=== PATIENT | female | born 1975 | race Caucasian/White ===

== ENCOUNTER 2016-09-09 10:11 | Inpatient (IN) | payer OTHER ==
[2016-09-09] VITALS (21 sets, daily range): BP systolic 112–143; BP diastolic 63–93; PULSE 63–92; RESP 13–29; Ht 162.6 cm; Wt 68.8 kg
[~2016-09-09] VITALS: Ht 162.6 cm; Wt 68.8 kg
[2016-09-09] MEDS ORDERED: CEFTRIAXONE 1 GM/NS 50 ML IVPB ONE (12:00)
--- NOTE | 2016-09-09 12:09 | HPN ---
Date/Time of Note Date/Time of Note DATE: 09/09/16 TIME: 12:09 Interval H&P Admission Note Pt. seen H&P reviewed: No system changes HAN SANABRIA MD Sep 09, 2016 12:09
[2016-09-09] MEDS ORDERED: IOHEXOL 300MG/ML 30 ML BTL INJ ONE (12:30)
[2016-09-09] MEDS ORDERED: IOHEXOL 300MG/ML 30 ML BTL ONE ×2 (12:32→14:47)
[2016-09-09] MEDS ORDERED: PROPOFOL 20 ML ONE (12:44)
[2016-09-09] MEDS ORDERED: MIDAZOLAM 1 MG/ML 2 ML INJ ONE (12:44)
[2016-09-09] MEDS ORDERED: SUCCINYLCHOLINE CHLORIDE 100 MG/5 ML SYG IV ONE (12:44)
[2016-09-09] MEDS ORDERED: LIDOCAINE 2% (SDV) 5 ML INJ ONE (12:44)
[2016-09-09] MEDS ORDERED: FENTAnyl 50 MCG/ML VIAL ONE (12:51)
[2016-09-09] MEDS ORDERED: ROCURONIUM 50 MG INJ ONE (13:02)
[2016-09-09] MEDS ORDERED: ONDANSETRON 4 MG INJ ONE (13:18)
[2016-09-09] MEDS ORDERED: METOCLOPRAMIDE 10 MG INJ ONE (13:18)
[2016-09-09] MEDS ORDERED: DEXAMETHASONE 4 MG/ML 1 ML INJ ONE (13:19)
[2016-09-09] MEDS ORDERED: FAMOTIDINE 20 MG INJ ONE (13:19)
--- NOTE | 2016-09-09 13:33 | RADRPT ---
PROCEDURE: Intraoperative imaging of the abdomen and pelvis with fluoroscopy. CLINICAL INDICATION: Right flank pain. Right renal calculus. Intraoperative. TECHNIQUE: 10 images of the abdomen and pelvis were obtained in the operating room with an image i ntensifier. No radiologist was in attendance. 0.7 minutes of fluoroscopy time was used. COMPARISON: No prior study is available for comparison. FINDINGS: Images demonstrate placement of a balloon-tip catheter in the proximal right ureter and subsequent c ontrast injection. There is a large calculus in the lower pole franki of the right kidney. There is no hydronephrosis. IMPRESSION: 1. Satisfactory intraoperative imaging of the abdomen and pelvis. RPTAT: QQ .Allan Butterfield MD, MD Date Time Electronically viewed and signed by .Allan Butterfield MD, on 09/09/2016 13:33 .R/
[2016-09-09] MEDS ORDERED: HYDROmorphONE 2 MG/ML SYG ONE (13:45)
[2016-09-09] MEDS ORDERED: MEPERIDINE 25 MG INJ IV PRN (16:30)
[2016-09-09] MEDS ORDERED: FENTAnyl 50 MCG/ML VIAL IV PRN ×3 (16:30)
[2016-09-09] MEDS ORDERED: HYDROmorphONE (0.2 MG/ML) 10ML SYG IV PRN ×3 (16:30)
[2016-09-09] MEDS ORDERED: PROCHLORPERAZINE 10 MG INJ IV PRN (16:30)
[2016-09-09] MEDS ORDERED: DIPHENHYDRAMINE 50 MG INJ IV PRN (16:30)
[2016-09-09] MEDS ORDERED: ONDANSETRON 4 MG INJ IV PRN ×2 (16:30→21:30)
[2016-09-09] MEDS ORDERED: HYDROmorphONE 0.2 MG/ML PCA IV SCH (17:00)
[2016-09-09] MEDS ORDERED: HYDROCODONE/APAP (5/325) TAB PO PRN (17:00)
--- NOTE | 2016-09-09 17:12 | RADRPT ---
PROCEDURE: Intraoperative right renal percutaneous access for placement of 30-Zimbabwean sheath, right nephrostogram, and right nephrostomy tube placement. CLINICAL INDICATION: Right kidney stones. Right flank pain. TECHNIQUE: Prior to the procedure, informed consent was obtained from the patient. Risks including bleeding an d infection were explained to the patient. The patient understood and was willing to proceed. A pr ocedural pause was performed. The patient's name, date of , and procedure to be performed were verified. Prior to the procedure, Dr. Echavarria inserted a retrograde right ureteral catheter with a balloon tip just below the right ureteropelvic junction. The balloon was inflated and contrast was infused int o the catheter in a retrograde fashion such that the right renal pelvis and collecting system were d istended. Using fluoroscopic guidance, a 6-Zimbabwean Yueh needle was advanced into the right upper pole calyx. T he tip was confirmed to be in position with fluoroscopic guidance. The inner cannula was removed le aving the plastic sheath in position. A guidewire was advanced through the plastic sheath into the right renal pelvis. Following this, the Yueh catheter was removed leaving the guidewire in position . A 7-Zimbabwean sheath was then advanced over the guidewire. The dilator was removed and an Amplatz gu idewire was then advanced through the sheath such that two guidewires were present within the right renal pelvis. The sheath was then removed and the safety guidewire was secured to the patient's ski n. Using a Kumpe catheter and various guide wires, an attempt was made to advance the guide wire in to the right ureter. However, due to marked tortuosity of the proximal right ureter, this could not be accomplished. Therefore, the 2 guidewires were left in the renal pelvis and the dilation was performed. A 10 mm renal dilation balloon was then advanced over the Amplatz guidewire such that th e tip was present in the renal pelvis. The balloon was inflated to 15 atmospheres under fluoroscopi c guidance. The 30 [place]an sheath was then advanced over the balloon into the renal pelvis. The bal loon dilator was then deflated and removed leaving the sheath in place within the renal pelvis. Dr. Echavarria then inserted the rigid nephroscope, which then confirmed the position of the sheath within the renal pelvis. The right ureter was then visualize directly with the nephroscope and using fluor oscopic guidance, the guidewire was advanced through the ureteropelvic junction into the right urete r and and into the bladder. The region nephroscope was removed and a second wire was advanced into the right ureter and then into the urinary bladder using a dual-lumen catheter. The dual-lumen cath eter was removed leaving the [address] Echavarria then inserted the rigid nephroscop e through the 30-Zimbabwean sheath, which again confirmed the position of the sheath within the renal pelv is. Dr. Echavarria then performed the percutaneous nephrolithotomy. Following the nephrolithotomy, a 24 [place]an Malecot nephrostomy tube was inserted as follows: The sh eath was removed leaving the guidewires in place. The 24 Zimbabwean Malecot catheter was advanced over the Amplatz guidewire such that the tip was in satisfactory position within the renal pelvis. The M alecot catheter also had a 7-Zimbabwean ureteral catheter which was advanced such that the tip was in th e mid portion of the right ureter as a stent. The guidewires were then removed. The catheter was s ecured to the patient's skin with 2-0 monofilament. The position was confirmed with a nephrostogram with 30 ml of iodinated contrast injected though the Malecot catheter. The nephrostogram demonstrates the tube in good position. COMPARISON: None. FINDINGS: Initial images demonstrate a large filling defect in the lower pole calyces and infundibulum consist ent with a large staghorn calculus. Final images demonstrate removal of the calculus and the nephro stomy tube in satisfactory position. IMPRESSION: 1. Satisfactory renal access and placement of 30-Zimbabwean sheath in the upper pole franki of the right kidney. 2. Subsequent placement of nephrostomy tube in the right kidney. 3. Nephrostogram demonstrates the right nephrostomy tube in satisfactory position. RPTAT: QQ .Allan Butterfield MD, Date Time Electronically viewed and signed by .Allan Butterfield MD, MD on 09/09/2016 17:12 .R/
--- NOTE | 2016-09-09 17:41 | OPR ---
DATE OF OPERATION: 09/09/2016 PREOPERATIVE DIAGNOSIS: Right renal staghorn calculus. POSTOPERATIVE DIAGNOSIS: Right renal staghorn calculus. OPERATION PERFORMED: Cystoscopy, insertion of right ureteral catheter and right percutaneous nephro stolithotomy. The patient first underwent a cystoscopy and insertion of the ureteral catheter with an occluding balloon. Then after that, she underwent the placement of the access to the kidney by Dr. Allan Butterfield and he will dictate that part. Then, I did the percutaneous nephrostolithotomy, mecca sigrid the kidney stone and then Dr. Butterfield came back and inserted the Malecot nephrostomy tube. TECHNIQUE: The patient was brought to the operating room. She was given general endotracheal anest hesia. The patient received 1 gram of ceftriaxone IV at the start of the procedure. Then, the rodrigo ent was positioned in the lithotomy position. The genital area was prepped and draped in the usual sterile manner. Then, a #21 Nigerian cystoscope sheath was introduced into the bladder and urine was collected for culture and sensitivity. Then, the right ureteral orifice was identified and cannulat ed with a 5-Nigerian ureteral catheter that has an occluding balloon and under fluoroscopy that was ad vanced all the way up to the level of the ureteropelvic junction. The wire that was inside the uret eral catheter was removed. A retrograde pyelogram was done demonstrating the collecting system and the stone in the lower and middle pole calyces. Then, the balloon of the cystoscope was removed, le aving in the ureteral catheter. Then, the balloon of the ureteral catheter was inflated with 1 mL o f contrast material. Then, a Gómez catheter was inserted into the bladder and the ureteral catheter was taped to the Gómez catheter, so it would not move. At that moment, the patient was then moved from the cystoscopy table back to the stretcher and then the operating room table was readjusted for the procedure in the prone position. Then, the patient was transferred on to the operating table a nd put in the prone position, and she was padded to protect her axilla as the groins and breasts and she was secured in place. Then, the patient was prepped and draped in the usual sterile manner. Dr. Scout Smyth came in and did the percutaneous insertion of the nephrostomy access. He was having p roblems passing the Glidewire into the ureter because the ureter was a little tortuous on the top; h michelle, after he placed the sheath for the nephroscopy, I did nephroscopy and then I identified the ureteropelvic junction and then with him around, we manipulated the Glidewire to advance it into th e ureter and at that time as it did go down the ureter, then he readjusted the tubes and he did pass the 2 wires. the safety wire and the other wire down the ureter all the way to the bladder. Then I proceeded with the nephrostolithotomy using the ultrasonic machine and the stone was seen coming ou t into the renal pelvis from the lower pole. Then, it was broken and I kept breaking it until I com pletely removed it, but there was no additional stone or stone fragments that were seen on the x-ray . After that, the nephroscope was removed, then Dr. Allan Butterfield came back and inserted the Malecot n ephrostomy tube and secured it in place. Then, a sterile dressing was put around the nephrostomy an d connected to a drainage bag. Then, the patient was put on the stretcher on her back and then vinson sferred to recovery room in stable and satisfactory condition. Dictated By: HAN CADE/TYRON Conf#: [id number] DID#: [id number]
--- NOTE | 2016-09-09 20:39 | QN ---
Documentation Comment [id number] Rojo MD Sep 09, 2016 20:39
[2016-09-09] MEDS: DEXTROSE 5%-0.45% NACL 1,000 ML IV SCH (21:22)
[2016-09-09] MEDS ORDERED: NACL 0.9% 3 ML SYG IV SCH (21:30)
[2016-09-09] MEDS ORDERED: DOCUSATE SODIUM 100 MG CAP PO PRN (21:30)
[2016-09-09] MEDS ORDERED: MAGNESIUM HYDROXIDE 30ML CUP PO PRN (21:30)
[2016-09-09] MEDS ORDERED: ACETAMINOPHEN 325 MG TAB PO PRN (21:30)
[2016-09-10 02:11] VITALS: BP 129/75; RESP 16
[2016-09-10 05:39] LABS: ADD SCAN DIFF NO
[2016-09-10 05:47] LABS: BASOPHILS % 0.1 % (0.0-2.0); HEMATOCRIT 39.7 % (37.0-47.0); HEMOGLOBIN 12.9 g/dl (12.0-16.0); LYMPHOCYTES # 0.7 10^3/ul (0.8-2.9); MEAN CORPUSCULAR HEMOGLOBIN 29.3 pg (29.0-33.0); MEAN CORPUSCULAR HGB CONC 32.5 g/dl (32.0-37.0); MEAN CORPUSCULAR VOLUME 90.2 fl (82.0-101.0); MEAN PLATELET VOLUME 9.8 fl (7.4-10.4); MONOCYTE # 0.9 10^3/ul (0.3-0.9); MONOCYTES % 4.9 % (0.0-11.0); NEUTROPHIL # 15.9 10^3/ul (1.6-7.5); NEUTROPHILS % 90.5 % (39.0-77.0); PLATELET COUNT 259 10^3/UL (140-415); RED CELL DISTRIBUTION WIDTH 13.2 % (11.5-14.5); WHITE BLOOD COUNT 17.6 10^3/ul (4.8-10.8)
[2016-09-10 06:32] LABS: POTASSIUM 4.7 mmol/L (3.5-5.1)
[2016-09-10 06:35] LABS: CREATININE 0.91 mg/dl (0.44-1.00)
--- NOTE | 2016-09-10 07:15 | CONS ---
DATE OF ADMISSION: 09/09/2016 DATE OF CONSULTATION: Thank you, Dr. Echavarria, for kindly asking me to see this patient in consultation. HISTORY OF PRESENT ILLNESS: The patient is a 41-year-old female who has a history of a right renal staghorn calculus, status post cystoscopy and insertion of right ureteral catheter and right uretera l percutaneous nephrostolithotomy. The patient is being seen post procedure in the recovery room. Denies any chest pain, palpitations, back pain or abdominal pain. Vital signs: Blood pressure is 14 3/70 and the patient is going to be monitored for further management. PAST MEDICAL HISTORY: Positive for kidney stones. ALLERGY HISTORY: NEGATIVE. FAMILY HISTORY: Negative. SOCIAL HISTORY: Negative. REVIEW OF SYSTEMS: HEENT: Unremarkable. RESPIRATORY: Unremarkable. CARDIOVASCULAR: Unremarkable. ABDOMEN: As mentioned. EXTREMITIES: Unremarkable. GENITOURINARY: Complaining of no pain at this point. PHYSICAL EXAMINATION: GENERAL: The patient is awake, alert. VITAL SIGNS: Stable. HEAD: Atraumatic, normocephalic. Pupils equal and reactive to light. NECK: Supple. No JVD. LUNGS: Clear. CARDIOVASCULAR: S1, S2 are normal. ABDOMEN: Soft, nontender. Bowel sounds present. No palpable mass. EXTREMITIES: No cyanosis, clubbing, or edema. CENTRAL NERVOUS SYSTEM: The patient is awake and alert, moving both upper and lower extremities. LABORATORY DATA: None at this point. IMPRESSION: Status post cystoscopy, nephrostolithotomy and ureteral stent. PLAN: The patient received Rocephin. The patient will be started on IV fluids and SCDs to the legs . Laboratory data will be requested for the morning. Orders were done. Thank you, Dr. Echavarria, for kindly asking me to see this patient in consultation. Dictated By: ESPERANZA TROTTER MD BS/NTS Conf#: [id number] DID#: [id number]
[2016-09-10 08:23] VITALS: BP 133/77; RESP 16
[2016-09-10] MEDS ORDERED: HYDROmorphONE 1 MG/ML SYG IV PRN (11:00)
[2016-09-10] MEDS ORDERED: HYDROCODONE/APAP (5/325) TAB PO PRN (11:00)
--- NOTE | 2016-09-10 12:50 | CONS ---
Date/Time of Note Date/Time of Note DATE: 09/10/16 TIME: 12:48 Assessment/Plan Assessment/Plan Chief Complaint/Hosp Course IMPRESSION: Status post cystoscopy, nephrostolithotomy and ureteral stent. leucocytosis plan ck labs iv fluid Problems: Consultation Date/Type/Reason Admit Date/Time Sep 09, 2016 at 10:11 Initial Consult Date Type of Consultation: mild hematuris Exam/Review of Systems Vital Signs Vitals Vital Signs Date Time Temp Pulse Resp B/P Pulse Ox O2 Delivery O2 Flow Rate FiO2 09/10/16 08:23 98.2 86 16 133/77 98 09/09/16 18:01 Room Air Intake and Output 09/09/16 09/09/16 09/10/16 15:00 23:00 07:00 Intake Total 1400 ml 500 ml Output Total 60 ml 625 ml Balance 1340 ml -125 ml Exam Respiratory: clear to auscultation Cardiovascular: regular rate and rhythm Gastrointestinal: bowel sounds (+), soft Genitourinary - Female: other (rt nephro tube) Results Result Diagram: 09/10/16 0511 09/10/16 0511 Results 24 hrs Laboratory Tests Test 09/10/16 05:11 Anion Gap 15 Basophils # 0.0 Basophils % 0.1 Blood Urea Nitrogen 15 Calcium Level 8.0 L Carbon Dioxide Level 24 Chloride Level 104 Creatinine 0.91 Eosinophils # 0.0 Eosinophils % 0.0 Glucose Level 150 Hematocrit 39.7 Hemoglobin 12.9 Lymphocytes # 0.7 L Lymphocytes % 4.0 L Mean Corpuscular Hemoglobin 29.3 Mean Corpuscular Hemoglobin Concent 32.5 Mean Corpuscular Volume 90.2 Mean Platelet Volume 9.8 Monocytes # 0.9 Monocytes % 4.9 Neutrophils # 15.9 H Neutrophils % 90.5 H Nucleated Red Blood Cells # 0.0 Nucleated Red Blood Cells % 0.0 Platelet Count 259 Potassium Level 4.7 Red Blood Count 4.40 Red Cell Distribution Width 13.2 Sodium Level 138 White Blood Count 17.6 H Medications Medications Current Medications Ceftriaxone Sodium 50 ml @ 100 mls/hr Q24H IVPB ; Start 09/10/16 at 13:00 Dextrose/Sodium Chloride (D5-1/2ns) 1,000 ml @ 50 mls/hr Q20H IV Last administered on 09/09/16t 21:22; Admin Dose 50 MLS/HR; Start 09/09/16 at 21:07 Ondansetron HCl (Zofran Inj) 4 mg Q6H PRN IV NAUSEA AND/OR VOMITING; Start at 21:30 Acetaminophen (Tylenol Tab) 650 mg Q6H PRN PO PAIN LEVEL 1-3 OR FEVER; Start at 21:30 Docusate Sodium (Colace) 100 mg Q12H PRN PO CONSTIPATION; Start 09/09/16 at 21: 30 Magnesium Hydroxide (Milk Of Mag) 30 ml DAILY PRN PO CONSTIPATION; Start at 21:30 Acetaminophen/ Hydrocodone Bitart ([place] (5/325)) 1 tab Q4H PRN PO pain 1-5; Start 09/10/16 at 11:00 Acetaminophen/ Hydrocodone Bitart ([place] (10/325)) 1 tab Q4H PRN PO pain 6-10; Start 09/10/16 at 11:00 Hydromorphone HCl (Dilaudid) 1 mg Q4H PRN IV PAIN; Start 09/10/16 at 11:00 ESPERANZA TROTTER MD Sep 10, 2016 12:50
[2016-09-10] MEDS: CEFTRIAXONE 1 GM/50 ML (PMX) 50 ML IVPB SCH (13:16)
[2016-09-10] MEDS: HYDROCODONE/APAP (10/325) TAB PO PRN ×2 (13:20→19:42)
[2016-09-10 16:23] LABS: ALBUMIN 3.6 g/dl (3.3-4.9)
[2016-09-10 16:24] LABS: POTASSIUM 4.8 mmol/L (3.5-5.1)
[2016-09-10 16:26] LABS: ALBUMIN/GLOBULIN RATIO 1.09; BILIRUBIN,INDIRECT 0.3 mg/dl (0-1.1); BILIRUBIN,TOTAL 0.3 mg/dl (0.2-1.3); CREATININE 0.86 mg/dl (0.44-1.00); TOTAL PROTEIN 6.9 g/dl (6.1-8.1)
[2016-09-10] MEDS: DEXTROSE 5%-0.45% NACL 1,000 ML IV SCH (16:44)
[2016-09-10 19:58] VITALS: BP 152/95; RESP 20
[2016-09-11 06:13] LABS: ADD SCAN DIFF NO
[2016-09-11 06:26] LABS: BASOPHILS % 0.2 % (0.0-2.0); EOSINOPHILS % 0.1 % (0.0-7.0); HEMATOCRIT 38.9 % (37.0-47.0); LYMPHOCYTES % 6.1 % (15.0-51.0); MEAN CORPUSCULAR HEMOGLOBIN 30.1 pg (29.0-33.0); MEAN CORPUSCULAR HGB CONC 33.4 g/dl (32.0-37.0); MEAN PLATELET VOLUME 10.1 fl (7.4-10.4); MONOCYTES % 6.3 % (0.0-11.0); NEUTROPHIL # 14.1 10^3/ul (1.6-7.5); NEUTROPHILS % 86.9 % (39.0-77.0); PLATELET COUNT 224 10^3/UL (140-415); RED BLOOD COUNT 4.32 10^6/ul (4.20-5.40); RED CELL DISTRIBUTION WIDTH 13.3 % (11.5-14.5); WHITE BLOOD COUNT 16.3 10^3/ul (4.8-10.8)
[2016-09-11 08:04] VITALS: BP 161/89; RESP 20
[2016-09-11] MEDS: HYDROCODONE/APAP (10/325) TAB PO PRN (10:47)
[2016-09-11] MEDS ORDERED: POLYETHYLENE GLYCOL 17 GM PACKET PO SCH (11:00)
--- NOTE | 2016-09-11 12:04 | PDOCDIS ---
Discharge Instructions DIAGNOSIS Discharge Diagnosis: right renal staghorn calculous CONDITION Patient Condition: Good HOME CARE INSTRUCTIONS: Diet Instructions: RegularSpecial Diet: REGULAR DIET ACTIVITY: Activity Restrictions: Slowly Increase Activity Rest between Activity Avoid heavy lifting Do not Drive Bathing Restrictions: Sponge Bath FOLLOW UP/APPOINTMENTS Appointments follow up appointment with Dr Echavarria next ,Call Monday for appointment [phone] HAN ECHAVARRIA MD Sep 11, 2016 12:04
[2016-09-11] MEDS: CEFTRIAXONE 1 GM/50 ML (PMX) 50 ML IVPB SCH (13:00)
--- NOTE | 2016-09-11 13:03 | CONS ---
Date/Time of Note Date/Time of Note DATE: 09/11/16 TIME: 13:02 Assessment/Plan Assessment/Plan Chief Complaint/Hosp Course IMPRESSION: Status post cystoscopy, nephrostolithotomy and ureteral stent. leucocytosis plan ck labs iv fluid antibiotic Problems: Consultation Date/Type/Reason Admit Date/Time Sep 09, 2016 at 10:11 Type of Consultation: no abd pain Exam/Review of Systems Vital Signs Vitals Vital Signs Date Time Temp Pulse Resp B/P Pulse Ox O2 Delivery O2 Flow Rate FiO2 09/11/16 08:04 98.5 95 20 161/89 97 09/09/16 18:01 Room Air Intake and Output 09/10/16 09/10/16 09/11/16 15:00 23:00 07:00 Intake Total 1710 ml 690 ml Output Total 2250 ml 250 ml Balance -540 ml 440 ml Exam Neck: supple Respiratory: clear to auscultation Cardiovascular: regular rate and rhythm Gastrointestinal: soft Musculoskeletal: nl extremities to inspection Extremities: normal pulses Results Result Diagram: 09/11/16 0540 09/10/16 1550 Results 24 hrs Laboratory Tests Test 09/10/16 15:50 09/11/16 05:40 Alanine Aminotransferase (ALT/SGPT) 39 Albumin 3.6 Albumin/Globulin Ratio 1.09 Alkaline Phosphatase 49 Anion Gap 16 Aspartate Amino Transf (AST/SGOT) 38 Blood Urea Nitrogen 14 Calcium Level 8.0 L Carbon Dioxide Level 24 Chloride Level 101 Creatinine 0.86 Direct Bilirubin 0.00 Globulin 3.30 H Glucose Level 143 Indirect Bilirubin 0.3 Potassium Level 4.8 Sodium Level 136 Total Bilirubin 0.3 Total Protein 6.9 Basophils # 0.0 Basophils % 0.2 Eosinophils # 0.0 Eosinophils % 0.1 Hematocrit 38.9 Hemoglobin 13.0 Lymphocytes # 1.0 Lymphocytes % 6.1 L Mean Corpuscular Hemoglobin 30.1 Mean Corpuscular Hemoglobin Concent 33.4 Mean Corpuscular Volume 90.0 Mean Platelet Volume 10.1 Monocytes # 1.0 H Monocytes % 6.3 Neutrophils # 14.1 H Neutrophils % 86.9 H Nucleated Red Blood Cells # 0.0 Nucleated Red Blood Cells % 0.0 Platelet Count 224 Red Blood Count 4.32 Red Cell Distribution Width 13.3 White Blood Count 16.3 H Medications Medications Current Medications Ceftriaxone Sodium 50 ml @ 100 mls/hr Q24H IVPB Last administered on 13:16; Admin Dose 100 MLS/HR; Start 09/10/16 at 13:00 Dextrose/Sodium Chloride (D5-1/2ns) 1,000 ml @ 50 mls/hr Q20H IV Last administered on 09/10/16 16:44; Admin Dose 50 MLS/HR; Start 09/09/16 at 21:07 Ondansetron HCl (Zofran Inj) 4 mg Q6H PRN IV NAUSEA AND/OR VOMITING; Start at 21:30 Acetaminophen (Tylenol Tab) 650 mg Q6H PRN PO PAIN LEVEL 1-3 OR FEVER; Start at 21:30 Docusate Sodium (Colace) 100 mg Q12H PRN PO CONSTIPATION; Start 09/09/16 at 21: 30 Magnesium Hydroxide (Milk Of Mag) 30 ml DAILY PRN PO CONSTIPATION; Start at 21:30 Acetaminophen/ Hydrocodone Bitart ([place] (5/325)) 1 tab Q4H PRN PO pain 1-5; Start 09/10/16 at 11:00 Acetaminophen/ Hydrocodone Bitart ([place] (10/325)) 1 tab Q4H PRN PO pain 6-10 Last administered on 09/11/16 10:47; Admin Dose 1 TAB; Start 09/10/16 at 11:00 Hydromorphone HCl (Dilaudid) 1 mg Q4H PRN IV PAIN; Start 09/10/16 at 11:00 Polyethylene Glycol (Miralax) 8.5 gm BID PO ; Start 09/11/16 at 11:00 ESPERANZA TROTTER MD Sep 11, 2016 13:02
--- NOTE | 2016-09-11 19:26 | DS ---
DATE OF ADMISSION: 09/09/2016 DATE OF DISCHARGE: 09/11/2016 ADMITTING DIAGNOSIS: Right renal staghorn calculus. DISCHARGE DIAGNOSIS: Right renal staghorn calculus. The patient status post right percutaneous nep hrostolithotomy. HISTORY: This is a 41-year-old female who had a large right renal staghorn calculus occupying the l ower pole and middle pole of the right kidney, extending into the renal pelvis. The patient underwe nt right percutaneous nephrostolithotomy on the day of admission. She had a nephrostomy tube placed in, and the first day, the nephrostomy tube was draining bloody urine. On the second postoperative day today, the urine is pinkish, and it is much clearer than yesterday. HOSPITAL COURSE: The postoperative course was uneventful. OBJECTIVE: VITAL SIGNS: She is afebrile. Temperature is 98.5, pulse is 95, respirations 20, blood pressure 16 1/89. ABDOMEN: The dressing around the nephrostomy tube is intact, and the abdomen is soft. GENITOURINARY: The Gómez catheter that she had was removed yesterday, and she has been voiding well . LABORATORY DATA: CBC with a white count of 16.3, yesterday it was 17.6. Hemoglobin 13.0, yesterday it was 12.9. Hematocrit 38.9. The BUN is 14, creatinine 0.86. Electrolytes are normal. The urine culture that we collected on the day of the surgery was no growth after 48 hours. However , her urine culture prior to the hospital admission was positive, and she was then started on Cipro, and she only took it for 3 days, and she still has more medication for the next 7 days. Therefore, she will be going home with a nephrostomy tube, and the patient will continue taking her antibiotic at home, and she is to see me in the office in about 4 to 5 days to check, and then if her urine is clear, I'll have the radiologist do a nephrostogram and remove the nephrostomy tube. The patient is instructed to call me should there be any problem, and I wrote a prescription for her for [place], and the antibiotic she has been on is Cipro 500 mg twice a day, and if she is constipate d, she could take milk of magnesia as needed. Dictated By: HAN CADE/TYRON Conf#: [id number] DID#: [id number]
== END 2016-09-11 13:50 | disposition home or self-care (01) | DRG 661 ==
LOC: REC 10:11 → MS2 18:26
PROVIDERS: ADMIT Urology; ATTEND Urology
PROC: 0T9330Z Drainage of Right Kidney Pelvis with Drainage Device, Percutaneous Approach (ICD-10-PCS; 2016-09-09)
PROC: BT111ZZ Fluoroscopy of Right Kidney using Low Osmolar Contrast (ICD-10-PCS; 2016-09-09)
PROC: 0TC33ZZ Extirpation of Matter from Right Kidney Pelvis, Percutaneous Approach (ICD-10-PCS; principal; 2016-09-09 12:30)
DX: N20.0 Calculus of kidney (principal)
CPT/HCPCS: 74420; 74425; 74475; 80048; 80053; 84703; 85025; 87086; 88300; C1769; J0330; J0696; J1100; J1170; J2250; J2405; J2765; J3010; J7042; Q9967

== ENCOUNTER → 2016-09-23 | Outpatient (CLI) | payer OTHER ==
[~2016-09-23] MED LIST: IOHEXOL 300MG/ML 30 ML BTL ONE
--- NOTE | 2016-09-23 15:07 | RADRPT ---
PROCEDURE: Fluoroscopic-guided right nephrostogram. Fluoroscopic-guided removal of right nephrosto my tube. CLINICAL INDICATION: Right flank pain. History of right percutaneous nephrolithotomy on 09/09/2016 . TECHNIQUE: Informed consent was obtained. The procedure, risks, benefits, complications and alternatives were explained to the patient. Risks including bleeding and infection were explained. The patient underst ood and was willing to proceed. A procedural pause was performed. The patient's name, date of , and procedure to be performed w ere verified. Using fluoroscopic guidance, 30 ml Omnipaque-300 was injected into the existing righ t nephrostomy tube. Multiple digital images were obtained. Following this, the suture was cut and the nephrostomy tube was removed with fluoroscopic guidance. A post procedure image was obtained. A dressing was applied. The patient tolerated procedure well. 0.1 minutes of fluoroscopy time was used. COMPARISON: Images from a percutaneous nephrolithotomy on 09/09/2016. FINDINGS: The nephrostogram demonstrates the nephrostomy tube in satisfactory position within the right renal pelvis. There is a linear filling defect within the lower pole franki of the right kidney which may be residu al calculus or blood clot. There is no other filling defect to suggest calculus. The post procedure images demonstrate complete removal of the nephrostomy tube. IMPRESSION: 1. The nephrostogram demonstrates the tube in satisfactory position within the right renal pelvis. 2. Small filling defect in the lower pole franki of the right kidney which may be due to residual ca lculus or blood clot. 3. The nephrostomy tube was subsequently removed. RPTAT: QQ .Allan Butterfield MD, Date Time Electronically viewed and signed by .Allan Butterfield MD, on 09/23/2016 15:07 .R/
== END | disposition home or self-care (01) ==
LOC: RAD 13:48
PROVIDERS: ATTEND Urology
DX: N20.0 Calculus of kidney (principal)
CPT/HCPCS: 74425; Q9967

== ENCOUNTER 2017-08-04 10:15 | Day surgery (SDC) | END 2017-08-04 16:07 | disposition home or self-care (01) ==